=== PATIENT | male | born 1955 | race Caucasian/White ===

== ENCOUNTER 2022-02-21 12:37 | Outpatient (CLI) | payer MEDICARE, OTHER | END 2022-02-21 12:38 | disposition home or self-care (01) | LOC: CSHMRI 12:37 | PROVIDERS: ATTEND Anesthesiology Pain Medicine | DX: S32.000A Wedge compression fracture of unspecified lumbar vertebra, initial encounter for closed fracture (principal); S32.019A Unspecified fracture of first lumbar vertebra, initial encounter for closed fracture; M47.816 Spondylosis without myelopathy or radiculopathy, lumbar region; M51.26 Other intervertebral disc displacement, lumbar region; I71.4 Abdominal aortic aneurysm, without rupture | CPT/HCPCS: 72148 ==

== ENCOUNTER 2023-04-27 14:18 | Outpatient (CLI) | payer MEDICARE, OTHER | END 2023-04-27 14:19 | disposition home or self-care (01) | LOC: CSHMRI 14:18 | PROVIDERS: ATTEND Psychiatry & Neurology Neurology | DX: R41.3 Other amnesia (principal); J34.9 Unspecified disorder of nose and nasal sinuses | CPT/HCPCS: 70553 ==

== ENCOUNTER 2023-10-20 15:40 | Outpatient (CLI) | payer MEDICARE, OTHER | END 2023-10-20 15:41 | disposition home or self-care (01) | LOC: CSHCT 15:40 | PROVIDERS: ATTEND Family Medicine | DX: Z12.2 Encounter for screening for malignant neoplasm of respiratory organs (principal); Z87.891 Personal history of nicotine dependence | CPT/HCPCS: 71271 ==